=== PATIENT | female | born 1995 | race African-American/Black ===

== ENCOUNTER 2018-04-01 19:50 | Inpatient (IN) | payer MEDICAID ==
[~2018-04-01] VITALS: Ht 162.6 cm; Wt 69.9 kg
[2018-04-01] MEDS ORDERED: DEXT 5%/LR + PITOCIN 20UNITS/L 1,000 ML IV SCH (20:34)
[2018-04-01] MEDS: LACTATED RINGERS 1,000 ML IV SCH ×2 (20:34→23:22)
[2018-04-01] MEDS ORDERED: BUTORPHANOL TARTRATE 2 MG/ML VIAL IV PRN (20:45)
[2018-04-01 21:31] LABS: BASOPHILS % 0.4 % (0.0-2.0); HEMATOCRIT. 33.7 % (36.0-48.0); HEMOGLOBIN. 11.4 g/dL (12.0-16.0); LYMPHOCYTES % 8.9 % (20.0-50.0); MEAN CORPUSCULAR HEMOGLOBIN 29.9 pg (28.0-32.0); MEAN CORPUSCULAR VOLUME 88.2 fL (81.0-99.0); MEAN PLATELET VOLUME 9.4 fl (7.4-10.4); MONOCYTES % 7.7 % (2.0-8.0); PLATELET 225 x1000/uL (130-400); RED BLOOD CELL COUNT 3.82 mill/uL (4.2-5.4); RED CELL DISTRIBUTION WIDTH 13.2 % (11.6-14.6)
[2018-04-01 21:37] LABS: CHLORIDE 106 mEq/L (98-107)
[2018-04-01 21:38] LABS: PARTIAL THROMBOPLASTIN TIME 27.3 sec (23.4-31.0); PROTHROMBIN TIME 10.2 sec (9.4-11.6)
[2018-04-01] MEDS ORDERED: AMPICILLIN 2,000 MG in SODIUM CHLORIDE 0.9% 100 ML IV SCH (21:40)
[2018-04-01 22:07] LABS: RUBELLA IGG 101.8 IU/mL (4.99-10)
[2018-04-01 22:08] LABS: HEPATITIS B SURFACE ANTIGEN NEGATIVE
[2018-04-02] MEDS ORDERED: BUPIVACAINE HCL/NS/PF EPIDURAL 100 ML EP ONE (00:11)
[2018-04-02] MEDS ORDERED: FENTANYL CITRATE/PF 50MCG/ML 2ML VIAL ONE (00:12)
[2018-04-02] MEDS ORDERED: BUPIVACAINE HCL/PF 0.25% (2.5MG/ML) 10ML ONE ×2 (00:32→06:52)
[2018-04-02] MEDS: LACTATED RINGERS 1,000 ML IV SCH (06:19)
[2018-04-02] MEDS ORDERED: DEXT 5%/LR + PITOCIN 20UNITS/L 1,000 ML IV SCH (08:57)
[2018-04-02] MEDS ORDERED: LANOLIN OINT 0.25 GM TUBE TOP PRN (09:00)
[2018-04-02] MEDS ORDERED: RHO(D) IMMUNE GLOBULIN 300 MCG/SYR IM PRN (09:00)
[2018-04-02] MEDS ORDERED: GLYCERIN/WITCH HAZEL LEAF MEDICATED PAD TOP PRN (09:00)
[2018-04-02] MEDS ORDERED: ACETAMINOPHEN WITH CODEINE 300/30MG TABLET PO PRN ×2 (09:00)
[2018-04-02] MEDS ORDERED: BISACODYL 10MG SUPP PR PRN (09:00)
[2018-04-02 10:45] VITALS: BP 120/72
[2018-04-02 11:30] VITALS: BP 126/71
[2018-04-02] MEDS: IBUPROFEN 400MG TABLET PO PRN (11:38)
[2018-04-02 14:30] VITALS: BP 121/70
[2018-04-02 17:24] VITALS: BP 102/64
[2018-04-02] MEDS: MAGNESIUM/ALUMINUM HYDROXIDE/SIMETHICONE 30ML UDC PO SCH (21:05)
[2018-04-02] MEDS: DOCUSATE SODIUM 100MG CAPSULE PO SCH (21:06)
[2018-04-02] MEDS: SIMETHICONE 80MG TABLET CHEW PO SCH (21:06)
[2018-04-02 23:50] VITALS: BP 114/61
[2018-04-03 05:39] LABS: BASOPHILS % 0.2 % (0.0-2.0); EOSINOPHILS % 0.1 % (0.0-5.0); HEMATOCRIT. 31.6 % (36.0-48.0); HEMOGLOBIN. 10.7 g/dL (12.0-16.0); LYMPHOCYTES % 16.7 % (20.0-50.0); MEAN CORPUSCULAR VOLUME 88.8 fL (81.0-99.0); MEAN PLATELET VOLUME 9.5 fl (7.4-10.4); MONOCYTES % 10.4 % (2.0-8.0); NEUTROPHILS % 72.6 % (40.0-76.0); PLATELET 218 x1000/uL (130-400); RED BLOOD CELL COUNT 3.56 mill/uL (4.2-5.4); RED CELL DISTRIBUTION WIDTH 13.8 % (11.6-14.6)
[2018-04-03 07:50] VITALS: BP 111/61
[2018-04-03] MEDS: MAGNESIUM/ALUMINUM HYDROXIDE/SIMETHICONE 30ML UDC PO SCH ×4 (08:41→21:29)
[2018-04-03] MEDS: PRENATAL VIT/FE FUMARATE/FA TABLET PO SCH (08:41)
[2018-04-03] MEDS: SIMETHICONE 80MG TABLET CHEW PO SCH ×4 (08:41→21:30)
[2018-04-03 16:15] VITALS: BP 110/75
[2018-04-03 19:50] VITALS: BP 114/68
[2018-04-03] MEDS: DOCUSATE SODIUM 100MG CAPSULE PO SCH (21:29)
[2018-04-04 05:38] LABS: HEMATOCRIT 29.7 % (36.0-48.0); HEMOGLOBIN 10.1 g/dL (12.0-16.0); MEAN CORPUSCULAR HEMOGLOBIN 30.1 pg (28.0-32.0); MEAN CORPUSCULAR VOLUME 88.3 fL (81.0-99.0); PLATELET 214 x1000/uL (130-400); RED BLOOD CELL COUNT 3.36 mill/uL (4.2-5.4); RED CELL DISTRIBUTION WIDTH 13.5 % (11.6-14.6)
[2018-04-04 07:42] VITALS: BP 103/74
[2018-04-04] MEDS: MAGNESIUM/ALUMINUM HYDROXIDE/SIMETHICONE 30ML UDC PO SCH (08:34)
[2018-04-04] MEDS: SIMETHICONE 80MG TABLET CHEW PO SCH (08:35)
[2018-04-04] MEDS: PRENATAL VIT/FE FUMARATE/FA TABLET PO SCH (08:35)
[2018-04-04] MEDS: IBUPROFEN 400MG TABLET PO PRN (08:38)
== END 2018-04-04 11:45 | disposition home or self-care (01) | DRG 560 ==
LOC: L&D 19:50 → OBSVTOIN 19:50 → 7EST PP/OB 04-02 11:11
PROVIDERS: ADMIT Obstetrics & Gynecology; ATTEND Obstetrics & Gynecology
PROC: 3E0S3BZ Introduction of Anesthetic Agent into Epidural Space, Percutaneous Approach (ICD-10-PCS; 2018-04-02)
PROC: 00HU33Z Insertion of Infusion Device into Spinal Canal, Percutaneous Approach (ICD-10-PCS; 2018-04-02)
PROC: 0KQM0ZZ Repair Perineum Muscle, Open Approach (ICD-10-PCS; 2018-04-02)
PROC: 3E0234Z Introduction of Serum, Toxoid and Vaccine into Muscle, Percutaneous Approach (ICD-10-PCS; 2018-04-02)
PROC: 10E0XZZ Delivery of Products of Conception, External Approach (ICD-10-PCS; principal; 2018-04-02 08:32)
DX: O77.0 Labor and delivery complicated by meconium in amniotic fluid (principal); D62 Acute posthemorrhagic anemia; O99.13 Other diseases of the blood and blood-forming organs and certain disorders involving the immune mechanism complicating the puerperium; O69.81X0 Labor and delivery complicated by cord around neck, without compression, not applicable or unspecified; O70.1 Second degree perineal laceration during delivery; O99.03 Anemia complicating the puerperium; D72.829 Elevated white blood cell count, unspecified; Z37.0 Single live birth; Z3A.39 39 weeks gestation of pregnancy
CPT/HCPCS: 36415; 76805; 76818; 80053; 85025; 85027; 85610; 85730; 86592; 86703; 86762; 86850; 86870; 86886; 86900; 87340; 90384; J0290; J0595; J2590; J3010; J3490; J7050; J7120